=== PATIENT | male | born 1955 | race American Indian/Alaskan Native ===

== ENCOUNTER 2018-07-05 07:49 | Day surgery (SDC) | payer MEDICARE, OTHER ==
[2016-02-12 12:53] VITALS: BMI 26.2
[2018-07-05] MEDS ORDERED: Propofol 10 mg/ml Inj (20 ML) ONE ×3 (10:27→10:46)
[2018-07-05] MEDS ORDERED: Sodium Chloride 0.9% 1,000 ML IV SCH (11:30)
[2018-07-05 11:57] VITALS: O2SAT 97
[2018-07-05 12:59] VITALS: BP 139/82; PULSE 75; RESP 18; TEMP 97.3
== END 2018-07-05 12:55 | disposition home or self-care (01) ==
LOC: ENDO 07:49
PROVIDERS: ATTEND Internal Medicine Gastroenterology
DX: Z12.11 Encounter for screening for malignant neoplasm of colon (principal); D12.5 Benign neoplasm of sigmoid colon; K62.1 Rectal polyp; K64.8 Other hemorrhoids; K44.9 Diaphragmatic hernia without obstruction or gangrene; K22.2 Esophageal obstruction; K29.50 Unspecified chronic gastritis without bleeding; K21.0 Gastro-esophageal reflux disease with esophagitis; K29.80 Duodenitis without bleeding
CPT/HCPCS: 43239; 45380; 88305; 88312; 88342; J2704; J7030; J7040